=== PATIENT | male | born 1970 | race Caucasian/White ===

== ENCOUNTER 2019-09-29 10:55 | Inpatient (IN) | payer OTHER ==
[2019-09-29 13:35] VITALS: BMI 20.9
--- NOTE | 2019-09-29 14:37 | HP ---
COWS - Scale Resting Pulse: 0= [place] 80 or Below Sweatin= Chills/Flushing Restless Observation: 1= Difficult to Sit Still Pupil Size: 1= Pupils >than Normal Bone or Joint Aches: 1= Mild Discomfort Runny Nose/ Eye Tearin= Runny Nose/Eyes GI Upset > 30mins: 2= Nausea/Diarrhea Tremor Observation: 2= Slight Tremor Visible Yawning Observation: 2= >3x During Session Anxiety or Irritability: 2=Irritable/Anxious Goose Flesh Skin: 0=Smooth Skin COWS Score: 14 CIWA Score Nausea/Vomitin Muscle Tremors: 2 Anxiety: 3 Agitation: 3 Paroxysmal Sweats: No Perspiration Orientation: 0-Oriented Tacttile Disturbances: 1-Very Mild Itch/Numbness Auditory Disturbances: 0-None Visual Disturbances: 0-None Headache: 2-Mild CIWA-Ar Total Score: 13 - Admission Criteria [facility] Guidelines: Admission for Medically Managed Detox: Requires at least one of the followin. CIWA greater than 12 2. Seizures within the past 24 hours 3. Delirium tremens within the past 24 hours 4. Hallucinations within the past 24 hours 5. Acute intervention needed for co occurring medical disorder 6. Acute intervention needed for co occurring psychiatric disorder 7. Severe withdrawal that cannot be handled at a lower level of care (continued vomiting, continued diarrhea, abnormal vital signs) requiring intravenous medication and/or fluids 8. Admission ROS [facility] Chief Complaint: i need help to stop using heroin and alcohol Allergies/Adverse Reactions: Allergies Allergy/AdvReac Type Severity Reaction Status Date / Time Penicillins Allergy Verified 09/29/19 13:27 History of Present Illness: this 49 years old mal with heroin dependence and alcohol dependence,seeking help ,first visit to this facility, never been in detox before, nicotine 1 pack/day no seizure no syncope insomnia on seroquel plan for out patient program after detoxi Exam Limitations: No Limitations - Ebola screening Have you traveled outside of the country in the last 21 days: No (N) Have you had contact with anyone from an Ebola affected area: No Do you have a fever: No - Review of Systems Constitutional: Chills, Loss of Appetite, Malaise, Night Sweats, Changes in sleep, Weakness EENT: reports: Nose Congestion Respiratory: reports: Other (asthma) Cardiac: reports: No Symptoms Reported GI: reports: Diarrhea, Nausea, Abdominal cramping : reports: No Symptoms Reported Musculoskeletal: reports: Back Pain, Joint Pain, Muscle Pain Integumentary: reports: Dryness Neuro: reports: Headache, Tremors Endocrine: reports: No Symptoms Reported Hematology: reports: No Symptoms Reported Psychiatric: reports: No Sypmtoms Reported, Judgement Intact, Mood/Affect Appropiate, Orientated x3, other (insomnia) Other Systems: Reviewed and Negative Patient History - Patient Medical History Hx Anemia: No Hx Asthma: Yes (on albuterol inhaler) Hx Chronic Obstructive Pulmonary Disease (COPD): No Hx Cancer: No Hx Cardiac Disorders: No Hx Congestive Heart Failure: No Hx Hypertension: No Hx Hypercholesterolemia: No Hx Pacemaker: No HX Cerebrovascular Accident: No Hx Seizures: No Hx Dementia: No Hx Diabetes: No Hx Gastrointestinal Disorders: No Hx Liver Disease: No Hx Genitourinary Disorders: No Hx Sexually Transmitted Disorders: No Hx Renal Disease (ESRD): No Hx Thyroid Disease: No Hx Human Immunodeficiency Virus (HIV): No (last 08/09 negative) Hx Hepatitis C: No Hx Depression: No Hx Suicide Attempt: No Hx Bipolar Disorder: No Hx Schizophrenia: No Other Medical History: incomnia on seroquel 50 mgs hs,no suiidal,no homicidal - Patient Surgical History Hx Abdominal Surgery: Yes (left inguinal at [facility],right inginal 2012) - PPD History Previous Implant?: Yes Documented Results: Negative w/o proof Implanted On Prior [facility] Admission?: No PPD to be Administered?: Yes - Smoking Cessation Smoking history: Current every day smoker Have you smoked in the past 12 months: Yes Aproximately how many cigarettes per day: 20 Cigars Per Day: 0 Hx Chewing Tobacco Use: No Initiated information on smoking cessation: Yes 'Breaking Loose' booklet given: 09/29/19 - Substance & Tx. History Hx Alcohol Use: Yes Hx Substance Use: Yes Substance Use Type: Alcohol, Cocaine, Heroin Hx Substance Use Treatment: No - Substances abused Heroin Substance route: Inhalation Frequency: Daily Amount used: 5-10 bags Age of first use: 48 Date of last use: 09/29/19 Alcohol Substance route: Oral Frequency: Daily Amount used: 1Qt of Vodka and 1qt of beer Age of first use: 22 Date of last use: 11/09/19 Cocaine Substance route: Smoking Frequency: Daily Amount used: 2 grams Age of first use: 14 Date of last use: 09/28/19 Admission Physical Exam [facility] - Vital Signs Vital Signs: Vital Signs - 24 hr 09/29/19 09/29/19 13:31 13:39 Temperature 97.4 F L 97.4 F L Pulse Rate 71 71 Respiratory 16 16 Rate Blood Pressure 124/70 124/70 - Physical General Appearance: Yes: Moderate Distress, Tremorous, Irritable, Sweating, Anxious HEENTM: Yes: Normal ENT Inspection, FREDDY, Pharynx Normal Respiratory: Yes: Within Normal Limits, Lungs Clear, Normal Breath Sounds Neck: Yes: Supple, Trachea in good position Breast: Yes: Within Normal Limits Cardiology: Yes: Within Normal Limits, Regular Rhythm, Regular Rate, S1, S2 Abdominal: Yes: Within Normal Limits, Normal Bowel Sounds, Non Tender, Flat, Soft Genitourinary: Yes: Within Normal Limits Back: Yes: Muscle Spasm Musculoskeletal: Yes: Back pain, Muscle Pain Extremities: Yes: Tremors 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 NML intact, Fully Oriented, Alert, Abnormal Cranial NS Integumentary: Yes: Dry Lymphatic: Yes: Within Normal Limits - Diagnostic (1) Opioid dependence with withdrawal Current Visit: Yes Status: Acute (2) Alcohol dependence with uncomplicated withdrawal Current Visit: Yes Status: Acute (3) Nicotine dependence Current Visit: Yes Status: Acute (4) Cocaine dependence Current Visit: Yes Status: Acute Cleared for Admission [facility] - Detox or Rehab [facility] Level of Care: Medically Managed Detox Regimen/Protocol: Methadone/Librium Breathalyzer - Breathalyzer Breathalyzer: 0 Urine Drug Screen - Test Device Lot number: [id number] Expiration date: 06/20/21 - Control Is test valid?: Yes - Results Drug screen NEGATIVE: No Urine drug screen results: GISELA-Cocaine, FEN-Fentanyl, MOP-Opiates Inpatient Rehab Admission - Rehab Decision to Admit Inpatient rehab admission?: No
[2019-09-29] MEDS ORDERED: MAGNESIUM HYDROX 2400MG/30ML ORAL SUSPENSION 30 ML CUP PO PRN (14:54)
[2019-09-29] MEDS ORDERED: hydrOXYzine PAMOATE 25 MG CAPSULE (FP) PO PRN (14:54)
[2019-09-29] MEDS ORDERED: MENTHOL/PHENOL 1 EACH UD MM PRN (14:54)
[2019-09-29] MEDS ORDERED: BISMUTH SUBSALICYLATE 524 MG/30 ML UD PO PRN (14:54)
[2019-09-29] MEDS ORDERED: MAGNESIUM CITRATE 300 ML BOTTLE PO PRN (14:54)
[2019-09-29] MEDS ORDERED: IBUPROFEN 400 MG TABLET (FP) PO PRN (14:54)
[2019-09-29] MEDS ORDERED: ACETAMINOPHEN 325 MG TABLET (FP) PO PRN (14:54)
[2019-09-29] MEDS ORDERED: MELATONIN 5 MG TABLETS PO PRN (14:54)
[2019-09-29] MEDS ORDERED: MAG HYDROX/AL HYDROX/SIMETH 30 ML UNIT-DOSE CUP PO PRN (14:54)
[2019-09-29] MEDS ORDERED: METHADONE HCL 10 MG TABLET (FOR DETOX USE ONLY) PO ONE (14:54)
[2019-09-29] MEDS ORDERED: ALBUTEROL SO4 8 GM HFA INHALER IH PRN (14:58)
[2019-09-29] MEDS: chlordiazePOXIDE HCL 25 MG CAPSULE PO SCH ×2 (16:57→22:15)
[2019-09-29] MEDS: THIAMINE HCL 100 MG TABLET (FP) PO SCH (22:15)
[2019-09-30] MEDS: chlordiazePOXIDE HCL 25 MG CAPSULE PO SCH ×4 (04:52→21:59)
[2019-09-30] MEDS: ACETAMINOPHEN 325 MG TABLET (FP) PO PRN (07:18)
[2019-09-30] MEDS: METHOCARBAMOL 500 MG TABLET PO PRN (07:18)
[2019-09-30] MEDS: cloNIDine HCL 0.1 MG TABLET PO PRN (07:18)
[2019-09-30] MEDS: chlordiazePOXIDE HCL 25 MG CAPSULE PO PRN ×2 (07:22→20:03)
[2019-09-30] MEDS ORDERED: METHADONE HCL 5 MG TABLET (FOR DETOX USE ONLY) ONE (09:32)
[2019-09-30] MEDS ORDERED: METHADONE HCL 10 MG TABLET (FOR DETOX USE ONLY) ONE (09:32)
[2019-09-30] MEDS ORDERED: METHADONE (DETOX) 20 MG, METHADONE (DETOX) 5 MG PO ONE (10:00)
[2019-09-30] MEDS ORDERED: GABAPENTIN 100 MG CAPSULE (FP) PO ONE (10:00)
[2019-09-30] MEDS: PRENATAL VITAMINS W/ FOLIC ACID TABLET (FP) PO SCH (10:15)
[2019-09-30 10:20] LABS: HEMATOCRIT 41.9 % (35.4-49); HEMOGLOBIN 13.7 GM/dL (11.7-16.9); MCH 30.4 pg (25.7-33.7); MCHC 32.7 g/dl (32.0-35.9); MEAN CELL VOLUME 92.8 fl (80-96); MEAN PLT VOLUME 9.5 fl (7.5-11.1); PLATELET COUNT 189 K/MM3 (134-434); RBC 4.52 M/mm3 (4.00-5.60); RDW 14.4 % (11.9-15.9); WHITE BLOOD COUNT 6.2 K/mm3 (4.0-10.0)
[2019-09-30 10:24] LABS: ALBUMIN 3.6 g/dl (3.4-5.0); BILIRUBIN,TOTAL 0.3 mg/dL (0.2-1); BLOOD UREA NITROGEN 11.9 mg/dL (7-18); CALCIUM 8.8 mg/dL (8.5-10.1)
--- NOTE | 2019-09-30 10:28 | CONSULT ---
[facility] Psychiatric Consult - Data Date of interview: 09/30/19 Admission source: [facility] Identifying data: Patient is a 49 year old male, with children, domiciled and currently employed. This is one of multiple admissions for patient. Patient admitted to for opioid dependence. Substance Abuse History: Smoking Cessation. Smoking history: Current every day smoker. Have you smoked in the past 12 months: Yes. Aproximately how many cigarettes per day: 20. Cigars Per Day: 0. Hx Chewing Tobacco Use: No. Initiated information on smoking cessation: Yes. 'Breaking Loose' booklet given : 09/29/19. - Substance & Tx. History. Hx Alcohol Use: Yes. Hx Substance Use : Yes. Substance Use Type: Alcohol, Cocaine, Heroin. Hx Substance Use Treatment: No. - Substances abused. Heroin. Substance route: Inhalation. Frequency: Daily. Amount used: 5-10 bags. Age of first use: 48. Date of last use: 09/29/19. Alcohol. Substance route: Oral. Frequency: Daily. Amount used: 1Qt of Vodka and 1qt of beer. Age of first use: 22. Date of last use: . Cocaine. Substance route: Smoking. Frequency: Daily. Amount used : 2 grams. Age of first use: 14. Date of last use: 09/28/19 Psychiatric History: Patient denies history of psychiatric hospitalization, outpatient care, and suicide attempt. Mr. Davis reports receiving seroquel 50mg HS from his suboxone doctor. At present patient is irritable and restless due to withdrawal symptoms from opioid. Physical/Sexual Abuse/Trauma History: Not discussed. Patient irritable and restless due to withdrawals. Mental Status Exam - Mental Status Exam Alert and Oriented to: Time, Place, Person Cognitive Function: Good Patient Appearance: Well Groomed Mood: Irritable Affect: Mood Congruent Patient Behavior: Restless Speech Pattern: Clear Voice Loudness: Normal Thought Process: Goal Oriented Thought Disorder: Not Present Hallucinations: Denies Suicidal Ideation: Denies Homicidal Ideation: Denies Insight/Judgement: Poor Sleep: Poorly Appetite: Fair Muscle strength/Tone: Normal Gait/Station: Normal Psychiatric Findings - Problem List (Jackpot 1, 2,3) (1) Substance induced mood disorder Current Visit: Yes Status: Acute (2) Alcohol dependence with uncomplicated withdrawal Current Visit: Yes Status: Acute (3) Cocaine dependence Current Visit: Yes Status: Acute (4) Nicotine dependence Current Visit: Yes Status: Acute (5) Opioid dependence with withdrawal Current Visit: Yes Status: Acute (6) Substance-induced sleep disorder Current Visit: Yes Status: Acute - Initial Treatment Plan Initial Treatment Plan: Psychoeducation provided. Detoxification in progress. Will order Seroquel 50mg HS. Benefits and side effects discussed. Verbal consent given.
[2019-09-30] MEDS ORDERED: hydrOXYzine PAMOATE 50 MG CAPSULE (FP) PO PRN (10:35)
--- NOTE | 2019-09-30 10:54 | EKG ---
Test Reason : Blood Pressure : / mmHG Vent. Rate : 066 BPM Atrial Rate : 066 BPM P-R Int : 162 ms QRS Dur : 088 ms QT Int : 380 ms P-R-T Axes : 073 043 026 degrees QTc Int : 398 ms NORMAL SINUS RHYTHM NORMAL ECG NO PREVIOUS ECGS AVAILABLE Confirmed by KI WOOD, ELVIA ([id number]) on 09/30/2019 10:53:58 AM Referred By: Kwabena Cobian Confirmed By:ELVIA EMERSON MD
--- NOTE | 2019-09-30 15:02 | PN ---
[facility] CIWA - CIWA Score Nausea/Vomitin-Mild Nausea/No Vomiting Muscle Tremors: 3 Anxiety: 3 Agitation: 2 Paroxysmal Sweats: 2 Orientation: 1-Uncertain about Date Tacttile Disturbances: 0-None Auditory Disturbances: 0-None Visual Disturbances: 0-None Headache: 0-None Present CIWA-Ar Total Score: 12 BHS COWS - Scale Resting Pulse: 0= [place] 80 or Below Sweatin= Chills/Flushing Restless Observation: 0= Sits Still Pupil Size: 0= Normal to Room Light Bone or Joint Aches: 1= Mild Discomfort Runny Nose/ Eye Tearin= Nasal Congestion GI Upset > 30mins: 2= Nausea/Diarrhea (no diarrhea) Tremor Observation of Outstretched Hands: 2= Slight Tremor Visible Yawning Observation: 0= None Anxiety or Irritability: 2=Irritable/Anxious Goose Flesh Skin: 3=Piloerection COWS Score: 12 S Progress Note (SOAP) Subjective: 49 years old male admitted on 09/29/19 for alcohol and opiate withdrawal sx management treated with librium and methadone detox regimen ate breakfast tolerated food and fluid well report withdrawal sx from opiate "use 3-4 bundle" a day neurontin 100 mg po tid Objective: 09/30/19 15:04 Vital Signs Temperature 97.7 F 09/30/19 13:15 Pulse Rate 78 09/30/19 13:15 Respiratory Rate 18 09/30/19 13:15 Blood Pressure 115/75 09/30/19 13:15 O2 Sat by Pulse Oximetry (%) Laboratory Last Values WBC 6.2 K/mm3 (4.0-10.0) 09/30/19 07:50 RBC 4.52 M/mm3 (4.00-5.60) 09/30/19 07:50 Hgb 13.7 GM/dL (11.7-16.9) 09/30/19 07:50 Hct 41.9 % (35.4-49) 09/30/19 07:50 MCV 92.8 fl (80-96) 09/30/19 07:50 MCH 30.4 pg (25.7-33.7) 09/30/19 07:50 MCHC 32.7 g/dl (32.0-35.9) 09/30/19 07:50 RDW 14.4 % (11.9-15.9) 09/30/19 07:50 Plt Count 189 K/MM3 (134-434) 09/30/19 07:50 MPV 9.5 fl (7.5-11.1) 09/30/19 07:50 Sodium 143 mmol/L (136-145) 09/30/19 07:40 Potassium 4.0 mmol/L (3.5-5.1) 09/30/19 07:40 Chloride 108 mmol/L (98-107) H 09/30/19 07:40 Carbon Dioxide 32 mmol/L (21-32) 09/30/19 07:40 Anion Gap 4 MMOL/L (8-16) L 09/30/19 07:40 BUN 11.9 mg/dL (7-18) 09/30/19 07:40 Creatinine 1.0 mg/dL (0.55-1.3) 09/30/19 07:40 Est GFR (CKD-EPI)AfAm 100.55 09/30/19 07:40 Est GFR (CKD-EPI)NonAf 86.76 09/30/19 07:40 Random Glucose 76 mg/dL (74-106) 09/30/19 07:40 Calcium 8.8 mg/dL (8.5-10.1) 09/30/19 07:40 Total Bilirubin 0.3 mg/dL (0.2-1) 09/30/19 07:40 AST 9 U/L (15-37) L 09/30/19 07:40 ALT 15 U/L (13-61) 09/30/19 07:40 Alkaline Phosphatase 49 U/L (45-117) 09/30/19 07:40 Total Protein 6.0 g/dl (6.4-8.2) L 09/30/19 07:40 Albumin 3.6 g/dl (3.4-5.0) 09/30/19 07:40 RPR Titer Nonreactive (NONREACTIVE) 09/30/19 07:40 lab noted Assessment: 09/30/19 15:05 alcohol and opiate withdrawal sx management Plan: continue librium and methadone detox regimen
[2019-09-30] MEDS: GABAPENTIN 100 MG CAPSULE (FP) PO SCH ×2 (15:41→21:59)
[2019-09-30] MEDS: THIAMINE HCL 100 MG TABLET (FP) PO SCH (21:59)
[2019-09-30] MEDS ORDERED: QUEtiapine FUMARATE 50 MG TABLET PO SCH (22:00)
[2019-10-01] MEDS: METHOCARBAMOL 500 MG TABLET PO PRN (01:22)
[2019-10-01] MEDS: cloNIDine HCL 0.1 MG TABLET PO PRN (01:22)
[2019-10-01] MEDS: ACETAMINOPHEN 325 MG TABLET (FP) PO PRN (01:23)
[2019-10-01] MEDS: chlordiazePOXIDE HCL 25 MG CAPSULE PO PRN (03:22)
[2019-10-01] MEDS: chlordiazePOXIDE HCL 25 MG CAPSULE PO SCH ×2 (05:14→10:32)
[2019-10-01] MEDS: GABAPENTIN 100 MG CAPSULE (FP) PO SCH ×2 (05:14→13:26)
[2019-10-01 09:26] VITALS: BP 108/60; PULSE 66; TEMP 96
[2019-10-01] MEDS ORDERED: METHADONE HCL 10 MG TABLET (FOR DETOX USE ONLY) PO ONE (10:00)
[2019-10-01] MEDS: PRENATAL VITAMINS W/ FOLIC ACID TABLET (FP) PO SCH (10:32)
--- NOTE | 2019-10-01 11:09 | PN ---
S CIWA - CIWA Score Nausea/Vomitin-Mild Nausea/No Vomiting Muscle Tremors: 3 Anxiety: 3 Agitation: 2 Paroxysmal Sweats: 1-Minimal Palms Moist Orientation: 0-Oriented Tacttile Disturbances: 1-Very Mild Itch/Numbness Auditory Disturbances: 0-None Visual Disturbances: 0-None Headache: 0-None Present CIWA-Ar Total Score: 11 BHS COWS - Scale Resting Pulse: 0= [place] 80 or Below Sweatin= Chills/Flushing Restless Observation: 0= Sits Still Pupil Size: 0= Normal to Room Light Bone or Joint Aches: 2= Severe Diffuse Aches Runny Nose/ Eye Tearin= Nasal Congestion GI Upset > 30mins: 2= Nausea/Diarrhea Tremor Observation of Outstretched Hands: 2= Slight Tremor Visible Yawning Observation: 1= 1-2x During Session Anxiety or Irritability: 2=Irritable/Anxious Goose Flesh Skin: 0=Smooth Skin COWS Score: 11 S Progress Note (SOAP) Subjective: 49 years old male admitted on 09/29/19 for alcohol and opiate withdrawal sxx management treated with librium and methadone resting on bed feeling tired prefers to stay in bed today discuss medication assisted treatment program Objective: 10/01/19 11:09 Vital Signs Temperature 96.0 F L 10/01/19 09:25 Pulse Rate 66 10/01/19 09:25 Respiratory Rate 18 10/01/19 09:25 Blood Pressure 108/60 10/01/19 09:25 O2 Sat by Pulse Oximetry (%) Laboratory Last Values WBC 6.2 K/mm3 (4.0-10.0) 09/30/19 07:50 RBC 4.52 M/mm3 (4.00-5.60) 09/30/19 07:50 Hgb 13.7 GM/dL (11.7-16.9) 09/30/19 07:50 Hct 41.9 % (35.4-49) 09/30/19 07:50 MCV 92.8 fl (80-96) 09/30/19 07:50 MCH 30.4 pg (25.7-33.7) 09/30/19 07:50 MCHC 32.7 g/dl (32.0-35.9) 09/30/19 07:50 RDW 14.4 % (11.9-15.9) 09/30/19 07:50 Plt Count 189 K/MM3 (134-434) 09/30/19 07:50 MPV 9.5 fl (7.5-11.1) 09/30/19 07:50 Sodium 143 mmol/L (136-145) 09/30/19 07:40 Potassium 4.0 mmol/L (3.5-5.1) 09/30/19 07:40 Chloride 108 mmol/L (98-107) H 09/30/19 07:40 Carbon Dioxide 32 mmol/L (21-32) 09/30/19 07:40 Anion Gap 4 MMOL/L (8-16) L 09/30/19 07:40 BUN 11.9 mg/dL (7-18) 09/30/19 07:40 Creatinine 1.0 mg/dL (0.55-1.3) 09/30/19 07:40 Est GFR (CKD-EPI)AfAm 100.55 09/30/19 07:40 Est GFR (CKD-EPI)NonAf 86.76 09/30/19 07:40 Random Glucose 76 mg/dL (74-106) 09/30/19 07:40 Calcium 8.8 mg/dL (8.5-10.1) 09/30/19 07:40 Total Bilirubin 0.3 mg/dL (0.2-1) 09/30/19 07:40 AST 9 U/L (15-37) L 09/30/19 07:40 ALT 15 U/L (13-61) 09/30/19 07:40 Alkaline Phosphatase 49 U/L (45-117) 09/30/19 07:40 Total Protein 6.0 g/dl (6.4-8.2) L 09/30/19 07:40 Albumin 3.6 g/dl (3.4-5.0) 09/30/19 07:40 RPR Titer Nonreactive (NONREACTIVE) 09/30/19 07:40 lab noted Assessment: 10/01/19 11:10 alcohol and opiate withdrawal sx Plan: continue librium and methadone detox regimen
--- NOTE | 2019-10-01 15:53 | DS ---
[facility] Detox Discharge Summary Admission Date: 09/29/19 Discharge Date: 10/01/19 - History Present History: Alcohol Dependence, Opioid Dependence Additional Comments: 49 years old male admitted on 09/29/19 for alcohol and opiate withdrawal sx management treated with librium and methadone detox regimen patient is alert oriented x 3 speech clearly coherently ambulating steady gait patient insists to leave the detox unit without apparent reason case discuss with nurse and counselor against medical advice is appropriated patient refuses ciwa and cows refuses discharge physical examination - Physical Exam Results Vital Signs: Vital Signs Temperature 96.0 F L 10/01/19 09:25 Pulse Rate 66 10/01/19 09:25 Respiratory Rate 18 10/01/19 09:25 Blood Pressure 108/60 10/01/19 09:25 O2 Sat by Pulse Oximetry (%) Pertinent Admission Physical Exam Findings: alcohol and opiate withdrawal sx Laboratory Last Values WBC 6.2 K/mm3 (4.0-10.0) 09/30/19 07:50 RBC 4.52 M/mm3 (4.00-5.60) 09/30/19 07:50 Hgb 13.7 GM/dL (11.7-16.9) 09/30/19 07:50 Hct 41.9 % (35.4-49) 09/30/19 07:50 MCV 92.8 fl (80-96) 09/30/19 07:50 MCH 30.4 pg (25.7-33.7) 09/30/19 07:50 MCHC 32.7 g/dl (32.0-35.9) 09/30/19 07:50 RDW 14.4 % (11.9-15.9) 09/30/19 07:50 Plt Count 189 K/MM3 (134-434) 09/30/19 07:50 MPV 9.5 fl (7.5-11.1) 09/30/19 07:50 Sodium 143 mmol/L (136-145) 09/30/19 07:40 Potassium 4.0 mmol/L (3.5-5.1) 09/30/19 07:40 Chloride 108 mmol/L (98-107) H 09/30/19 07:40 Carbon Dioxide 32 mmol/L (21-32) 09/30/19 07:40 Anion Gap 4 MMOL/L (8-16) L 09/30/19 07:40 BUN 11.9 mg/dL (7-18) 09/30/19 07:40 Creatinine 1.0 mg/dL (0.55-1.3) 09/30/19 07:40 Est GFR (CKD-EPI)AfAm 100.55 09/30/19 07:40 Est GFR (CKD-EPI)NonAf 86.76 09/30/19 07:40 Random Glucose 76 mg/dL (74-106) 09/30/19 07:40 Calcium 8.8 mg/dL (8.5-10.1) 09/30/19 07:40 Total Bilirubin 0.3 mg/dL (0.2-1) 09/30/19 07:40 AST 9 U/L (15-37) L 09/30/19 07:40 ALT 15 U/L (13-61) 09/30/19 07:40 Alkaline Phosphatase 49 U/L (45-117) 09/30/19 07:40 Total Protein 6.0 g/dl (6.4-8.2) L 09/30/19 07:40 Albumin 3.6 g/dl (3.4-5.0) 09/30/19 07:40 RPR Titer Nonreactive (NONREACTIVE) 09/30/19 07:40 lab noted - Treatment Hospital Course: Detox Protocol Followed, Responded well Patient has Accepted a Rehab Referral to: medication assisted treatment progra - Medication Discharge Medications: Ambulatory Orders Albuterol Sulfate Inhaler - [Ventolin Hfa Inhaler -] 1 - 2 inh PO Q4H 09/29/19 Quetiapine Fumarate [Seroquel -] 50 mg PO BID 09/29/19 Naloxone HCl [Narcan] 4 mg NS ASDIR PRN #1 spray 10/01/19 - Diagnosis (1) Alcohol dependence with uncomplicated withdrawal Status: Acute (2) Nicotine dependence Status: Acute Qualifiers: Nicotine product type: cigarettes Substance use status: in withdrawal Qualified Code(s): F17.213 - Nicotine dependence, cigarettes, with withdrawal (3) Opioid dependence with withdrawal Status: Acute (4) Substance induced mood disorder Status: Suspected - AMA Did Patient Leave Against Medical Advice: Yes
[2019-10-02] MEDS ORDERED: chlordiazePOXIDE HCL 10 MG CAPSULE PO PRN
[2019-10-02] MEDS ORDERED: chlordiazePOXIDE HCL 10 MG CAPSULE PO SCH (05:00)
[2019-10-02] MEDS ORDERED: METHADONE (DETOX) 10 MG, METHADONE (DETOX) 5 MG PO ONE (10:00)
[2019-10-03] MEDS ORDERED: chlordiazePOXIDE HCL 10 MG CAPSULE PO SCH (05:00)
[2019-10-03] MEDS ORDERED: METHADONE HCL 10 MG TABLET (FOR DETOX USE ONLY) PO ONE (10:00)
[2019-10-04] MEDS ORDERED: chlordiazePOXIDE HCL 10 MG CAPSULE PO ONE (05:00)
[2019-10-04] MEDS ORDERED: METHADONE HCL 5 MG TABLET (FOR DETOX USE ONLY) PO ONE (06:00)
== END 2019-10-01 12:35 | disposition left against medical advice (07) | DRG 770 ==
LOC: YASAS 10:55 → Y3N 15:02
PROVIDERS: ADMIT Allergy & Immunology; ATTEND Allergy & Immunology
PROC: HZ2ZZZZ Detoxification Services for Substance Abuse Treatment (ICD-10-PCS; principal; 2019-09-29)
DX: F10.230 Alcohol dependence with withdrawal, uncomplicated (principal); F11.23 Opioid dependence with withdrawal; F14.20 Cocaine dependence, uncomplicated; F17.213 Nicotine dependence, cigarettes, with withdrawal; F19.282 Other psychoactive substance dependence with psychoactive substance-induced sleep disorder; J45.909 Unspecified asthma, uncomplicated; Z88.0 Allergy status to penicillin
CPT/HCPCS: 36415; 80053; 85027; 86593; 93005; 93010; J0735

== ENCOUNTER 2020-06-11 11:18 | Inpatient (IN) | payer OTHER ==
--- NOTE | 2020-06-11 11:56 | BHS.RME ---
Substance Use & Tx History - Substance Use History Alcohol Substance amount: 2 pints Vodka, few beers Frequency of use: Daily Substance route: Oral Date of Last Use: 06/11/20 (First use age 18 y. No seizures, no blackouts. 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 NO OD. Has Narcan at home) Heroin Substance amount: one bundle Frequency of use: Daily Substance route: Inhalation (ex: sniffing or snorting) Date of Last Use: 06/11/20 (First use age 46 y) Cocaine-Crack Substance amount: 2 grams Frequency of use: Daily Substance route: Smoking Date of Last Use: 06/11/20 (First use age 16y) Nicotine Substance amount: 1-1.5 packs Frequency of use: Daily Substance route: Smoking Date of Last Use: 06/11/20 (First use age 11y) - Last Treatment Date of last treatment: 09/29 to 10/01/19 Treatment type: Substance Use Disorder (LUIZA) Where was last treatment: Detox Physical/Psych/Mental Status - Behavior General Behavior: Increased activity (restlessness, agitation) Eye Contact: Normal - Cooperativeness Cooperativeness: Cooperative - Thinking Thought Processes: Tight Thought content: Future oriented - Physical Health Problems Is patient presently having any pain?: No Does patient presently have any injuries (include location): No Does patient currently have a fever: No COWS - Scale Resting Pulse: 0= [place] 80 or Below Sweatin=Flushed/Facial Moisture Restless Observation: 1= Difficult to Sit Still Pupil Size: 0= Normal to Room Light Bone or Joint Aches: 1= Mild Discomfort Runny Nose/ Eye Tearin= Runny Nose/Eyes GI Upset > 30mins: 0= None Tremor Observation: 0= None Yawning Observation: 0= None Anxiety or Irritability: 2=Irritable/Anxious Goose Flesh Skin: 0=Smooth Skin COWS Score: 8 CIWA Nausea/Vomitin-No Nausea/No Vomiting Muscle Tremors: None Anxiety: 2 Agitation: 1-Slight > Activity Paroxysmal Sweats: 2 Orientation: 0-Oriented Tacttile Disturbances: 0-None Auditory Disturbances: 0-None Visual Disturbances: 0-None Headache: 0-None Present CIWA-Ar Total Score: 5
--- NOTE | 2020-06-11 13:54 | HP ---
COWS - Scale Resting Pulse: 0= [place] 80 or Below Sweatin=Flushed/Facial Moisture Restless Observation: 1= Difficult to Sit Still Pupil Size: 0= Normal to Room Light Bone or Joint Aches: 1= Mild Discomfort Runny Nose/ Eye Tearin= Runny Nose/Eyes GI Upset > 30mins: 0= None Tremor Observation: 0= None Yawning Observation: 0= None Anxiety or Irritability: 2=Irritable/Anxious Goose Flesh Skin: 0=Smooth Skin COWS Score: 8 CIWA Score Nausea/Vomitin-No Nausea/No Vomiting Muscle Tremors: None Anxiety: 2 Agitation: 1-Slight > Activity Paroxysmal Sweats: 2 Orientation: 0-Oriented Tacttile Disturbances: 0-None Auditory Disturbances: 0-None Visual Disturbances: 0-None Headache: 0-None Present CIWA-Ar Total Score: 5 - Admission Criteria OASAS Guidelines: Admission for Medically Managed Detox: Requires at least one of the followin. CIWA greater than 12 2. Seizures within the past 24 hours 3. Delirium tremens within the past 24 hours 4. Hallucinations within the past 24 hours 5. Acute intervention needed for co occurring medical disorder 6. Acute intervention needed for co occurring psychiatric disorder 7. Severe withdrawal that cannot be handled at a lower level of care (continued vomiting, continued diarrhea, abnormal vital signs) requiring intravenous medication and/or fluids 8. Admitting History and Physical - Admission Chief Complaint: " I am tired of the same I want to be normal again." History of Present Illness: 49 year old male with history of alcohol dependence with withdrawal, opioid dependence with withdrawal, cocaine use disorder, nicotine dependence. He was last here 09/26/19-10/01/19 and left AMA, relapsed in 2 weeks. Substance Use & Tx History - Substance Use History Alcohol Substance amount: 2 pints Vodka, few beers Frequency of use: Daily Substance route: Oral Date of Last Use: 06/11/20 (First use age 18 y. No seizures, no blackouts. 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 NO OD. Has Narcan at home) Heroin Substance amount: one bundle Frequency of use: Daily Substance route: Inhalation (ex: sniffing or snorting) Date of Last Use: 06/11/20 (First use age 46 y) Cocaine-Crack Substance amount: 2 grams Frequency of use: Daily Substance route: Smoking Date of Last Use: 06/11/20 (First use age 16y) Nicotine Substance amount: 1-1.5 packs Frequency of use: Daily Substance route: Smoking Date of Last Use: 06/11/20 (First use age 11y) - Last Treatment Date of last treatment: 09/29 to 10/01/19 Treatment type: Substance Use Disorder (LUIZA) Where was last treatment: Detox PMH: Asthma Psurg: Hernia B/L Inguinal repaired Psych: was on Xanax for anxiety Living in a camper, homeless, no legal issues pending. Patient meets criteria for detox and is willing to sign behavioral contract for completion of detox treatment History Source: Patient Limitations to Obtaining History: No Limitations - Past Medical History Pulmonary: Yes: Asthma - Past Surgical History Past Surgical History: Yes: Hernia Repair - Smoking History Smoking history: Current every day smoker Have you smoked in the past 12 months: Yes Aproximately how many cigarettes per day: 20 - Alcohol/Substance Use Hx Alcohol Use: Yes - Social History Usual Living Arrangement: Yes: Other Do you think of yourself as: Straight/Heterosexual ADL: Independent 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 Allergies/Adverse Reactions: Allergies Allergy/AdvReac Type Severity Reaction Status Date / Time Penicillins Allergy Verified 09/29/19 13:27 Exam Limitations: No Limitations - Ebola screening Have you traveled outside of the country in the last 21 days: No Have you had contact with anyone from an Ebola affected area: No Have you been sick,other than usual withdrawal symptoms: No Do you have a fever: No - Review of Systems Constitutional: Chills, Diaphoresis, Unintentional Wgt. Loss EENT: reports: No Symptoms Reported Respiratory: reports: No Symptoms reported Cardiac: reports: No Symptoms Reported GI: reports: No Symptoms Reported : reports: No Symptoms Reported Musculoskeletal: reports: No Symptoms Reported Integumentary: reports: No Symptoms Reported Neuro: reports: No Symptoms reported Endocrine: reports: No Symptoms Reported Hematology: reports: No Symptoms Reported Psychiatric: reports: Judgement Intact, Mood/Affect Appropiate, Orientated x3, Agitated, Anxious Other Systems: Reviewed and Negative Patient History - Patient Medical History Hx Anemia: No Hx Asthma: Yes (on albuterol inhaler) Hx Chronic Obstructive Pulmonary Disease (COPD): No Hx Cancer: No Hx Cardiac Disorders: No Hx Congestive Heart Failure: No Hx Hypertension: No Hx Hypercholesterolemia: No Hx Pacemaker: No HX Cerebrovascular Accident: No Hx Seizures: No Hx Dementia: No Hx Diabetes: No Hx Gastrointestinal Disorders: No Hx Liver Disease: No Hx Genitourinary Disorders: No Hx Sexually Transmitted Disorders: No Hx Renal Disease (ESRD): No Hx Thyroid Disease: No Hx Human Immunodeficiency Virus (HIV): No (last 08/09 negative) Hx Hepatitis C: No Hx Depression: No Hx Suicide Attempt: No Hx Bipolar Disorder: No Hx Schizophrenia: No - Patient Surgical History Past Surgical History: No Hx Neurologic Surgery: No Hx Cataract Extraction: No Hx Cardiac Surgery: No Hx Lung Surgery: No Hx Breast Surgery: No Hx Breast Biopsy: No Hx Abdominal Surgery: Yes (left inguinal at [facility],right inginal 2012) Hx Appendectomy: No Hx Cholecystectomy: No Hx Genitourinary Surgery: No Hx Section: No Hx Orthopedic Surgery: No Anesthesia Reaction: No - PPD History Previous Implant?: Yes Documented Results: Negative w/proof Implanted On Prior R Admission?: No Results: negative PPD to be Administered?: Yes - Smoking Cessation Smoking history: Current every day smoker Have you smoked in the past 12 months: Yes Aproximately how many cigarettes per day: 20 Cigars Per Day: 0 Hx Chewing Tobacco Use: No Initiated information on smoking cessation: Yes 'Breaking Loose' booklet given: 06/11/20 - Substances abused Alcohol Substance route: Oral Frequency: Daily (2 pints) Amount used: 2 pints vodka Age of first use: 18 Date of last use: 06/11/20 Heroin Substance route: Inhalation Frequency: Daily Amount used: 1 bundle Age of first use: 46 Date of last use: 06/11/20 Crack Substance route: Smoking Frequency: Daily Amount used: 2 grams Age of first use: 16 Date of last use: 06/11/20 Admission Physical Exam BHS - Physical General Appearance: Yes: Thin, Tremorous, Irritable, Sweating HEENTM: Yes: EOMI, Hearing grossly Normal, Normal ENT Inspection, Normocephalic, Normal Voice, FREDDY, Pharynx Normal, Tm's normal Respiratory: Yes: Chest Non-Tender, Lungs Clear, Normal Breath Sounds, No Respiratory Distress, No Accessory Muscle Use Neck: Yes: No masses,lesions,Nodules, Supple, Trachea in good position Breast: Yes: Within Normal Limits Cardiology: Yes: Regular Rhythm, S1, S2, Tachycardia Abdominal: Yes: Normal Bowel Sounds, Non Tender, Flat, Soft Genitourinary: Yes: Within Normal Limits Back: Yes: Normal Inspection Musculoskeletal: Yes: full range of Motion, Gait Steady, Pelvis Stable Extremities: Yes: Normal Capillary Refill, Normal Inspection, Normal Range of Motion, Non-Tender Neurological: Yes: 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 NML intact, Fully Oriented, Alert, Motor Strength 5/5, Normal Mood/Affect, Normal Response Integumentary: Yes: Normal Color, Dry, Warm Lymphatic: Yes: Within Normal Limits - Diagnostic (1) Alcohol dependence with uncomplicated withdrawal Current Visit: Yes Status: Acute (2) Cocaine dependence Current Visit: Yes Status: Acute (3) Nicotine dependence Current Visit: Yes Status: Acute Qualifiers: Nicotine product type: cigarettes Substance use status: in withdrawal Qualified Code(s): F17.213 - Nicotine dependence, cigarettes, with withdrawal (4) Opioid dependence with withdrawal Current Visit: Yes Status: Acute (5) Substance-induced sleep disorder Current Visit: Yes Status: Acute (6) Substance induced mood disorder Current Visit: Yes Status: Suspected Cleared for Admission S - Detox or Rehab [facility] Level of Care: Medically Managed Detox Regimen/Protocol: Methadone/Librium Claeared for Rehab Admission: No Screened but not Admitted - Documentation of Visit Screened but not Admitted: No Breathalyzer - Breathalyzer Breathalyzer: 0.019 Urine Drug Screen - Test Device Lot number: [id number] Expiration date: 06/20/21 - Control Is test valid?: Yes - Results Drug screen NEGATIVE: No Urine drug screen results: GISELA-Cocaine, FEN-Fentanyl, MOP-Opiates Inpatient Rehab Admission - Rehab Decision to Admit Inpatient rehab admission?: No
[2020-06-11] MEDS ORDERED: cloNIDine HCL 0.1 MG TABLET PO PRN (14:03)
[2020-06-11] MEDS ORDERED: METHADONE HCL 10 MG TABLET (FOR DETOX USE ONLY) PO ONE (14:03)
[2020-06-11] MEDS ORDERED: IBUPROFEN 400 MG TABLET (FP) PO PRN (14:03)
[2020-06-11] MEDS ORDERED: MAGNESIUM HYDROX 2400MG/30ML ORAL SUSPENSION 30 ML CUP PO PRN (14:03)
[2020-06-11] MEDS ORDERED: MAGNESIUM CITRATE 300 ML BOTTLE PO PRN (14:03)
[2020-06-11] MEDS ORDERED: NICOTINE POLACRILEX 2 MG GUM BUC PRN (14:03)
[2020-06-11] MEDS ORDERED: BISMUTH SUBSALICYLATE 524 MG/30 ML UD PO PRN (14:03)
[2020-06-11] MEDS ORDERED: ACETAMINOPHEN 325 MG TABLET (FP) PO PRN ×2 (14:03)
[2020-06-11] MEDS ORDERED: ONDANSETRON *ODT* 4 MG TABLET SL ONE (14:03)
[2020-06-11] MEDS ORDERED: MAG HYDROX/AL HYDROX/SIMETH 30 ML UNIT-DOSE CUP PO PRN (14:03)
[2020-06-11] MEDS ORDERED: MENTHOL/PHENOL 1 EACH UD MM PRN (14:03)
[2020-06-11] MEDS ORDERED: ALBUTEROL SO4 HFA INHALER IH PRN (14:15)
[2020-06-11] MEDS: METHOCARBAMOL 500 MG TABLET PO PRN (16:01)
[2020-06-11] MEDS: NICOTINE 7 MG/24 HOURS TOPICAL PATCH TD SCH (16:08)
[2020-06-11] MEDS: chlordiazePOXIDE HCL 25 MG CAPSULE PO SCH ×3 (16:08→22:46)
[2020-06-11] MEDS: PRENATAL VITAMINS W/ FOLIC ACID TABLET (FP) PO SCH (16:08)
[2020-06-11 16:54] LABS: HEMATOCRIT 42.6 % (35.4-49); HEMOGLOBIN 14.2 GM/dL (11.7-16.9); MCH 30.9 pg (25.7-33.7); MCHC 33.3 g/dl (32.0-35.9); MEAN CELL VOLUME 92.9 fl (80-96); MEAN PLT VOLUME 9.7 fl (7.5-11.1); PLATELET COUNT 193 K/MM3 (134-434); RBC 4.58 M/mm3 (4.00-5.60); RDW 14.8 % (11.9-15.9); WHITE BLOOD COUNT 6.2 K/mm3 (4.0-10.0)
[2020-06-11 17:03] LABS: ALBUMIN 3.8 g/dl (3.4-5.0); BILIRUBIN,TOTAL 0.2 mg/dL (0.2-1); BLOOD UREA NITROGEN 9.6 mg/dL (7-18); CALCIUM 8.8 mg/dL (8.5-10.1); POTASSIUM 4.3 mmol/L (3.5-5.1)
[2020-06-11] MEDS: hydrOXYzine PAMOATE 25 MG CAPSULE (FP) PO SCH ×2 (17:28→22:45)
[2020-06-11] MEDS: MELATONIN 5 MG TABLETS PO SCH (22:44)
[2020-06-11] MEDS: THIAMINE HCL 100 MG TABLET (FP) PO SCH (22:48)
[2020-06-12] MEDS: chlordiazePOXIDE HCL 25 MG CAPSULE PO SCH ×4 (05:35→22:54)
[2020-06-12] MEDS: hydrOXYzine PAMOATE 25 MG CAPSULE (FP) PO SCH ×2 (05:35→10:29)
[2020-06-12] MEDS ORDERED: METHADONE HCL 10 MG TABLET (FOR DETOX USE ONLY) ONE (09:08)
[2020-06-12] MEDS ORDERED: METHADONE HCL 5 MG TABLET (FOR DETOX USE ONLY) ONE (09:09)
[2020-06-12] MEDS ORDERED: METHADONE (DETOX) 20 MG, METHADONE (DETOX) 5 MG PO ONE (10:00)
[2020-06-12] MEDS: PRENATAL VITAMINS W/ FOLIC ACID TABLET (FP) PO SCH (10:29)
[2020-06-12] MEDS: NICOTINE 7 MG/24 HOURS TOPICAL PATCH TD SCH (10:29)
--- NOTE | 2020-06-12 10:54 | PN ---
[facility] CIWA - CIWA Score Nausea/Vomitin-Mild Nausea/No Vomiting Muscle Tremors: 2 Anxiety: 3 Agitation: 4-Moderately Restless Paroxysmal Sweats: 1-Minimal Palms Moist Orientation: 0-Oriented Tacttile Disturbances: 0-None Auditory Disturbances: 0-None Visual Disturbances: 1-Very Mild Sensitivity Headache: 0-None Present CIWA-Ar Total Score: 12 S COWS - Scale Resting Pulse: 0= [place] 80 or Below Sweatin= No chills or Flushing Restless Observation: 0= Sits Still Pupil Size: 1= Pupils >than Normal Bone or Joint Aches: 1= Mild Discomfort Runny Nose/ Eye Tearin= None GI Upset > 30mins: 2= Nausea/Diarrhea Tremor Observation of Outstretched Hands: 2= Slight Tremor Visible Yawning Observation: 0= None Anxiety or Irritability: 2=Irritable/Anxious Goose Flesh Skin: 0=Smooth Skin COWS Score: 8 S Progress Note (SOAP) Subjective: 49 years old male admitted on 06/11/20 for alcohol and opiate withdrawal sx management treating with librium and methadone detox regiments feeling tired bmi 21.6 ensure 120 ml po tid with meals resting in bed limited conversation with staff irritable agitative at time increase vistaril to 50 mg po Objective: 06/12/20 10:53 Vital Signs - 24 hr 06/11/20 06/11/20 06/11/20 15:50 16:53 21:18 Temperature 97.1 F L 97.8 F 97.8 F Pulse Rate 69 74 67 Respiratory 18 18 18 Rate Blood Pressure 139/79 122/81 135/84 O2 Sat by Pulse 100 99 Oximetry (%) 06/12/20 06/12/20 06:12 09:06 Temperature 97.8 F 97.7 F Pulse Rate 53 L 62 Respiratory 16 18 Rate Blood Pressure 121/70 115/61 O2 Sat by Pulse 96 Oximetry (%) Laboratory Tests 06/11/20 06/11/20 06/11/20 15:00 15:00 15:00 WBC 6.2 RBC 4.58 Hgb 14.2 Hct 42.6 MCV 92.9 MCH 30.9 MCHC 33.3 RDW 14.8 Plt Count 193 MPV 9.7 Sodium 141 Potassium 4.3 Chloride 108 H Carbon Dioxide 27 Anion Gap 5 L BUN 9.6 Creatinine 1.0 Est GFR (CKD-EPI)AfAm 100.55 Est GFR (CKD-EPI)NonAf 86.76 Random Glucose 90 Calcium 8.8 Total Bilirubin 0.2 AST 59 H ALT 114 H Alkaline Phosphatase 64 Total Protein 7.0 Albumin 3.8 Syphilis Serology Non-reactive covid pending 06/12/20 10:53 Assessment: 06/12/20 10:53 alcohol and opiate withdrawal Plan: librium and methadone regiments
[2020-06-12] MEDS: hydrOXYzine PAMOATE 50 MG CAPSULE (FP) PO SCH ×3 (11:44→23:14)
[2020-06-12] MEDS: MELATONIN 5 MG TABLETS PO SCH (22:54)
[2020-06-12] MEDS: THIAMINE HCL 100 MG TABLET (FP) PO SCH (22:54)
[2020-06-13] MEDS: chlordiazePOXIDE HCL 25 MG CAPSULE PO PRN ×2 (03:43→14:25)
[2020-06-13] MEDS: chlordiazePOXIDE HCL 25 MG CAPSULE PO SCH ×3 (05:36→16:49)
[2020-06-13] MEDS: hydrOXYzine PAMOATE 50 MG CAPSULE (FP) PO SCH ×2 (07:07→14:29)
[2020-06-13 09:18] VITALS: TEMP 97.8
[2020-06-13] MEDS ORDERED: METHADONE HCL 10 MG TABLET (FOR DETOX USE ONLY) PO ONE (10:00)
[2020-06-13] MEDS: NICOTINE 7 MG/24 HOURS TOPICAL PATCH TD SCH (10:35)
[2020-06-13] MEDS: PRENATAL VITAMINS W/ FOLIC ACID TABLET (FP) PO SCH (10:37)
--- NOTE | 2020-06-13 13:26 | PN ---
S CIWA - CIWA Score Nausea/Vomitin-Mild Nausea/No Vomiting Muscle Tremors: 1-None Visible, but [place] Anxiety: 1-Mildly Anxious Agitation: 0-Normal Activity Paroxysmal Sweats: No Perspiration Orientation: 1-Uncertain about Date Tacttile Disturbances: 0-None Auditory Disturbances: 0-None Visual Disturbances: 0-None Headache: 0-None Present CIWA-Ar Total Score: 4 BHS COWS - Scale Resting Pulse: 0= [place] 80 or Below Sweatin= No chills or Flushing Restless Observation: 0= Sits Still Pupil Size: 0= Normal to Room Light Bone or Joint Aches: 1= Mild Discomfort Runny Nose/ Eye Tearin= Nasal Congestion GI Upset > 30mins: 0= None Tremor Observation of Outstretched Hands: 0= None Yawning Observation: 1= 1-2x During Session Anxiety or Irritability: 1=Feels Anxious/Irritable Goose Flesh Skin: 0=Smooth Skin COWS Score: 4 BHS Progress Note (SOAP) Subjective: Patient says he feels sick and wants to fully detox and never use drugs again. Objective: 06/13/20 13:26 Patient is lying calmly in bed, tired looking and mildly disoriented. He is being managed for alcohol and heroin dependence with withdrawal symptoms. He also has nicotine and cocain use disorder. 06/13/20 13:32 Assessment: 06/13/20 13:28 Patient is asthmatic and is being managed for alcohol and heroin dependence. Plan: Continue patient on librium, methadone and other supporting treatements as recommended. Patient would be completing detox on 06/16/20
--- NOTE | 2020-06-13 14:24 | PN ---
BHS Progress Note Note: Pt complaining of withdrawal sx: back pain,elbow pain, stuffy nose. He wants to sleep. Rec 1. Robaxin prn 2. Will add Lidoderm patch prn back pain
[2020-06-13] MEDS: METHOCARBAMOL 500 MG TABLET PO PRN (14:25)
[2020-06-13] MEDS ORDERED: LIDOCAINE 5% TOPICAL PATCH TP SCH (14:30)
[2020-06-13] MEDS ORDERED: NICOTINE 21 MG/24 HOURS TOPICAL PATCH TD SCH (16:02)
[2020-06-13 17:10] VITALS: BP 110/67; PULSE 79
--- NOTE | 2020-06-13 19:06 | DS ---
[facility] Detox Discharge Summary Admission Date: 06/11/20 Discharge Date: 06/13/20 - History Present History: Alcohol Dependence, Cannabis Dependence, Cocaine Dependence, Opioid Dependence Additional Comments: Patient left before the provider could examine/evaluate him. Pertinent Past History: History of Asthma,b// Inguinal hernia repair, anxiety, alcohol, fentanyl, Heroin, Crack/cocaine,and nicotine use disorder. - Physical Exam Results Vital Signs: Vital Signs Temperature 97.8 F 06/13/20 16:36 Pulse Rate 79 06/13/20 16:36 Respiratory Rate 18 06/13/20 16:36 Blood Pressure 110/67 06/13/20 16:36 O2 Sat by Pulse Oximetry (%) 97 06/13/20 12:49 Pertinent Admission Physical Exam Findings: Withdrawal symptoms. - Treatment Hospital Course: Detox Protocol Followed - Medication Discharge Medications: Ambulatory Orders Albuterol Sulfate Inhaler - [Ventolin Hfa Inhaler -] 1 - 2 inh PO Q4H 09/29/19 Quetiapine Fumarate [Seroquel -] 50 mg PO BID 09/29/19 Naloxone HCl [Narcan] 4 mg NS ASDIR PRN #1 spray 10/01/19 - Diagnosis (1) Alcohol dependence with uncomplicated withdrawal Current Visit: Yes Status: Acute (2) Cocaine dependence Current Visit: Yes Status: Chronic (3) Nicotine dependence Current Visit: Yes Status: Chronic Qualifiers: Nicotine product type: cigarettes Substance use status: in withdrawal Qualified Code(s): F17.213 - Nicotine dependence, cigarettes, with withdrawal (4) Opioid dependence with withdrawal Current Visit: Yes Status: Chronic - AMA Did Patient Leave Against Medical Advice: Yes
[2020-06-13] MEDS ORDERED: LIDOCAINE PATCH REMOVAL MC SCH ×2 (22:00)
[2020-06-14] MEDS ORDERED: chlordiazePOXIDE HCL 10 MG CAPSULE PO PRN
[2020-06-14] MEDS ORDERED: chlordiazePOXIDE HCL 10 MG CAPSULE PO SCH (05:00)
[2020-06-14] MEDS ORDERED: METHADONE (DETOX) 10 MG, METHADONE (DETOX) 5 MG PO ONE (10:00)
[2020-06-15] MEDS ORDERED: chlordiazePOXIDE HCL 10 MG CAPSULE PO SCH (05:00)
[2020-06-15] MEDS ORDERED: METHADONE HCL 10 MG TABLET (FOR DETOX USE ONLY) PO ONE (10:00)
[2020-06-16] MEDS ORDERED: chlordiazePOXIDE HCL 10 MG CAPSULE PO ONE (05:00)
[2020-06-16] MEDS ORDERED: METHADONE HCL 5 MG TABLET (FOR DETOX USE ONLY) PO ONE (06:00)
== END 2020-06-13 17:59 | disposition left against medical advice (07) | DRG 770 ==
LOC: YASAS 11:18 → Y3N 14:55
PROVIDERS: ADMIT Allergy & Immunology; ATTEND Allergy & Immunology
PROC: HZ2ZZZZ Detoxification Services for Substance Abuse Treatment (ICD-10-PCS; principal; 2020-06-11)
DX: F10.230 Alcohol dependence with withdrawal, uncomplicated (principal); F11.23 Opioid dependence with withdrawal; F14.20 Cocaine dependence, uncomplicated; F17.210 Nicotine dependence, cigarettes, uncomplicated; F19.282 Other psychoactive substance dependence with psychoactive substance-induced sleep disorder; F19.24 Other psychoactive substance dependence with psychoactive substance-induced mood disorder; F41.9 Anxiety disorder, unspecified; J45.909 Unspecified asthma, uncomplicated; Z98.890 Other specified postprocedural states; Z88.0 Allergy status to penicillin
CPT/HCPCS: 36415; 80053; 85027; 86780; J0735; U0003

== ENCOUNTER 2020-06-24 09:21 | Inpatient (IN) | payer OTHER ==
--- NOTE | 2020-06-24 09:49 | BHS.RME ---
Substance Use & Tx History - Substance Use History Alcohol Substance amount: 2 pints Vodka, few beers Frequency of use: Daily Substance route: Oral Date of Last Use: 06/23/20 (First use age 18 y. NO seizure, No Blackouts. 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 NO OD. Has Narcan at home) Other Opiates/Synthetics Substance amount: Fentanyl, one bund.e Frequency of use: Daily Substance route: Inhalation (ex: sniffing or snorting) Date of Last Use: 06/23/20 (First use age 46 y) Nicotine Substance amount: 1-1.5 packs Frequency of use: Daily Substance route: Smoking Date of Last Use: 06/24/20 (First use age 11) - Last Treatment Date of last treatment: 06/11 to Treatment type: Substance Use Disorder (LUIZA) Where was last treatment: Detox COWS - Scale Resting Pulse: 1= [place] 81-100 Sweatin= No chills or Flushing Restless Observation: 0= Sits Still Pupil Size: 0= Normal to Room Light Bone or Joint Aches: 2= Severe Diffuse Aches Runny Nose/ Eye Tearin= Runny Nose/Eyes GI Upset > 30mins: 0= None Tremor Observation: 2= Slight Tremor Visible Yawning Observation: 0= None Anxiety or Irritability: 1=Feels Anxious/Irritable Goose Flesh Skin: 0=Smooth Skin COWS Score: 8 CIWA Nausea/Vomitin-No Nausea/No Vomiting Muscle Tremors: 2 Anxiety: 1-Mildly Anxious Agitation: 0-Normal Activity Paroxysmal Sweats: No Perspiration Orientation: 2-Disoriented Date<2 days Tacttile Disturbances: 0-None Auditory Disturbances: 0-None Visual Disturbances: 0-None Headache: 0-None Present CIWA-Ar Total Score: 5
[2020-06-24 10:43] VITALS: BMI 21.7
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
[2020-06-24] MEDS ORDERED: ALBUTEROL SO4 HFA INHALER IH PRN (11:10)
[2020-06-24] MEDS ORDERED: MAGNESIUM CITRATE 300 ML BOTTLE PO PRN (11:11)
[2020-06-24] MEDS ORDERED: MENTHOL/PHENOL 1 EACH UD MM PRN (11:11)
[2020-06-24] MEDS ORDERED: ACETAMINOPHEN 325 MG TABLET (FP) PO PRN (11:11)
[2020-06-24] MEDS ORDERED: NICOTINE POLACRILEX 2 MG GUM BUC PRN (11:11)
[2020-06-24] MEDS ORDERED: METHADONE HCL 10 MG TABLET (FOR DETOX USE ONLY) PO ONE (11:11)
[2020-06-24] MEDS ORDERED: ONDANSETRON *ODT* 4 MG TABLET SL PRN (11:11)
[2020-06-24] MEDS ORDERED: cloNIDine HCL 0.1 MG TABLET PO PRN (11:11)
[2020-06-24] MEDS ORDERED: MAG HYDROX/AL HYDROX/SIMETH 30 ML UNIT-DOSE CUP PO PRN (11:11)
[2020-06-24] MEDS ORDERED: MAGNESIUM HYDROX 2400MG/30ML ORAL SUSPENSION 30 ML CUP PO PRN (11:11)
[2020-06-24] MEDS ORDERED: BISMUTH SUBSALICYLATE 262 MG/15 ML BTL PO PRN (11:39)
[2020-06-24] MEDS: METHOCARBAMOL 500 MG TABLET PO PRN (12:28)
[2020-06-24] MEDS: NICOTINE 21 MG/24 HOURS TOPICAL PATCH TD SCH (12:31)
[2020-06-24 14:28] LABS: HEMATOCRIT 42.4 % (35.4-49); HEMOGLOBIN 14.1 GM/dL (11.7-16.9); MCH 30.7 pg (25.7-33.7); MCHC 33.2 g/dl (32.0-35.9); MEAN CELL VOLUME 92.4 fl (80-96); MEAN PLT VOLUME 9.6 fl (7.5-11.1); PLATELET COUNT 221 K/MM3 (134-434); RBC 4.59 M/mm3 (4.00-5.60); RDW 14.4 % (11.9-15.9); WHITE BLOOD COUNT 6.5 K/mm3 (4.0-10.0)
[2020-06-24] MEDS: hydrOXYzine PAMOATE 25 MG CAPSULE (FP) PO SCH ×3 (14:55→22:11)
[2020-06-24 15:07] LABS: POTASSIUM 3.8 mmol/L (3.5-5.1)
[2020-06-24 15:17] LABS: ALBUMIN 3.7 g/dl (3.4-5.0); BILIRUBIN,TOTAL 0.5 mg/dL (0.2-1); BLOOD UREA NITROGEN 9.1 mg/dL (7-18); CALCIUM 8.7 mg/dL (8.5-10.1); TOT PROT 6.7 g/dl (6.4-8.2)
--- NOTE | 2020-06-24 16:53 | CONSULT ---
[facility] Psychiatric Consult - Data Date of interview: 06/24/20 Admission source: [facility] Identifying data: Readmission to [address] [place] [address] for this 49 y/o male, self- referred for detoxification treatment. LUIZA issues : heroin, cocaine, alcohol, nicotine. Patient is , father of many (patient declines to disclose number of dependents), homeless, unemployed and deprived of income. Substance Abuse History: Discussed with the patient. LUIZA profile as follows : Smoking history: Current every day smoker. Have you smoked in the past 12 months: Yes. Aproximately how many cigarettes per day: 30. Cigars Per Day: 0. Hx Chewing Tobacco Use: No. Initiated information on smoking cessation: Yes. 'Breaking Loose' booklet given: 06/24/20. - Substances abused. Alcohol. Substance route: Oral. Frequency: Daily. Amount used: vodka- 2 pts. Age of first use: 18. Date of last use: 06/23/20. Heroin. Substance route: Inhalation. Frequency: Daily. Amount used: 1 bundle. Age of first use: 46. Date of last use: 06/23/20. Other. Other (specify): fentanyl. Substance route: Inhalation. Frequency: Daily. Amount used: 1 bundle. Age of first use: 46. Date of last use: 06/24/20. Crack. Substance route: Smoking. Frequency: Daily. Amount used: 2 g. Age of first use: 16. Date of last use: 06/23/20. Alcohol. Substance amount: 2 pints Vodka, few beers. Frequency of use: Daily. Substance route: Oral. Date of Last Use: 06/23/20 (First use age 18 y. NO seizure, No Blackouts. 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 Heroin. Substance amount: one bundle. Frequency of use: Daily. Substance route: Inhalation (ex: sniffing or snorting). Date of Last Use: 06/24/20 (First use age 46 y. NO OD. Has Narcan at home). Other Opiates/Synthetics. Substance amount: Fentanyl, one bund.e. Frequency of use: Daily. Substance route: Inhalation (ex: sniffing or snorting). Date of Last Use: 06/23/20 (First use age 46 y). Nicotine. Substance amount: 1-1.5 packs. Frequency of use: Daily. Substance route: Smoking. Date of Last Use: 06/24/20 (First use age 11). Benzos: denies use. - Last Treatment. Date of last treatment: 06/11 to . Treatment type: Substance Use Disorder (LUIZA). Where was last treatment: Detox. History Source: Patient. Limitations to Obtaining History: No Limitations Medical History: Medical profile is remarkable for bronchial asthma and history of bilateral inguinal herniorraphy. Psychiatric History: Patient denies history of psychiatric hopspitalizations, OPD care or suicide attempts. Mr Davis used to see a primary care physician for refills of xanax + seroquel. Off medications for several weeks (doctor is no longer available). Physical/Sexual Abuse/Trauma History: Patient denies history of abuse. Additional Comment: Urine drug screen results: GISELA-Cocaine, FEN-Fentanyl, MOP- Opiates, BZO-Benzodiazepines. Noted. Mental Status Exam - Mental Status Exam Alert and Oriented to: Time, Place, Person Cognitive Function: Good Patient Appearance: Unkempt, Disheveled Mood: Nervous, Withdrawn Affect: Mood Congruent, Constricted Patient Behavior: Fatigued, Appropriate, Cooperative Speech Pattern: Clear, Appropriate Voice Loudness: Normal Thought Process: Intact, Goal Oriented Thought Disorder: Not Present Hallucinations: Denies Suicidal Ideation: Denies Homicidal Ideation: Denies Insight/Judgement: Poor Sleep: Poorly, Difficulty falling asleep Appetite: Good Gait/Station: Other (not observed; did not get out of bed) Psychiatric Findings - Problem List (Friendly 1, 2,3) (1) Alcohol dependence with uncomplicated withdrawal Current Visit: Yes Status: Acute (2) Opioid dependence with withdrawal Current Visit: Yes Status: Acute (3) Cocaine dependence Current Visit: Yes Status: Acute (4) Nicotine dependence Current Visit: Yes Status: Acute Qualifiers: Nicotine product type: cigarettes Substance use status: in withdrawal Amor lified Code(s): F17.213 - Nicotine dependence, cigarettes, with withdrawal (5) Substance induced mood disorder Current Visit: Yes Status: Chronic (6) Insomnia Current Visit: Yes Status: Chronic (7) Non-compliance Current Visit: Yes Status: Acute - Initial Treatment Plan Initial Treatment Plan: Psychoeducation. Sleep hygiene. Detoxification. Resumed, at patient's request : seroquel 100 mg po hs. Side effects/benefits discussed with patient. Consent granted to MD. Eduardo.
[2020-06-24] MEDS: chlordiazePOXIDE HCL 25 MG CAPSULE PO SCH ×2 (17:17→22:10)
[2020-06-24] MEDS: THIAMINE HCL 100 MG TABLET (FP) PO SCH (22:11)
[2020-06-24] MEDS: QUEtiapine FUMARATE 100 MG TABLET (FP) PO SCH (22:11)
[2020-06-24] MEDS: MELATONIN 5 MG TABLETS PO SCH (22:11)
[2020-06-25] MEDS: chlordiazePOXIDE HCL 25 MG CAPSULE PO PRN (02:48)
[2020-06-25] MEDS: IBUPROFEN 400 MG TABLET (FP) PO PRN (02:48)
[2020-06-25] MEDS: hydrOXYzine PAMOATE 25 MG CAPSULE (FP) PO SCH ×5 (05:55→22:30)
[2020-06-25] MEDS: chlordiazePOXIDE HCL 25 MG CAPSULE PO SCH ×4 (05:55→22:31)
[2020-06-25] MEDS ORDERED: METHADONE HCL 5 MG TABLET (FOR DETOX USE ONLY) ONE (08:49)
[2020-06-25] MEDS ORDERED: METHADONE HCL 10 MG TABLET (FOR DETOX USE ONLY) ONE (08:49)
[2020-06-25] MEDS ORDERED: METHADONE (DETOX) 20 MG, METHADONE (DETOX) 5 MG PO ONE (10:00)
[2020-06-25] MEDS: NICOTINE 21 MG/24 HOURS TOPICAL PATCH TD SCH (11:00)
[2020-06-25] MEDS: PRENATAL VITAMINS W/ FOLIC ACID TABLET (FP) PO SCH (11:00)
--- NOTE | 2020-06-25 15:16 | PN ---
[facility] CIWA - CIWA Score Nausea/Vomitin-Mild Nausea/No Vomiting Muscle Tremors: 2 Anxiety: 2 Agitation: 1-Slight > Activity Paroxysmal Sweats: 1-Minimal Palms Moist Orientation: 1-Uncertain about Date (day of week) Tacttile Disturbances: 1-Very Mild Itch/Numbness Auditory Disturbances: 0-None Visual Disturbances: 2-Mild Sensitivity Headache: 1-Very Mild CIWA-Ar Total Score: 12 S COWS - Scale Resting Pulse: 0= [place] 80 or Below Sweatin= Chills/Flushing Restless Observation: 0= Sits Still Pupil Size: 1= Pupils >than Normal Bone or Joint Aches: 1= Mild Discomfort Runny Nose/ Eye Tearin= None GI Upset > 30mins: 2= Nausea/Diarrhea Tremor Observation of Outstretched Hands: 2= Slight Tremor Visible Yawning Observation: 0= None Anxiety or Irritability: 2=Irritable/Anxious Goose Flesh Skin: 0=Smooth Skin COWS Score: 9 S Progress Note (SOAP) Subjective: 49 years old male admitted on 06/24/20 for alcohol and opiate withdrawal sx management treating with librium and methadone detox regiments ate breakfast and lunch in room mr zelaya prefers to stay in bed resting today limited conversation with staff increase ensure to tid Objective: 06/25/20 15:17 Vital Signs - 24 hr 06/24/20 06/24/20 06/25/20 16:47 20:57 06:31 Temperature 98.2 F 97.7 F 97.5 F L Pulse Rate 70 66 57 L Respiratory 16 16 18 Rate Blood Pressure 116/72 129/75 106/63 O2 Sat by Pulse 98 98 Oximetry (%) 06/25/20 06/25/20 09:02 12:40 Temperature 97.8 F 97.8 F Pulse Rate 68 65 Respiratory 16 16 Rate Blood Pressure 100/58 L 117/66 O2 Sat by Pulse 95 Oximetry (%) Laboratory Tests 06/24/20 06/24/20 06/24/20 10:15 10:15 10:15 WBC 6.5 RBC 4.59 Hgb 14.1 Hct 42.4 MCV 92.4 MCH 30.7 MCHC 33.2 RDW 14.4 Plt Count 221 MPV 9.6 Sodium 140 Potassium 3.8 Chloride 109 H Carbon Dioxide 25 Anion Gap 5 L BUN 9.1 Creatinine 1.0 Est GFR (CKD-EPI)AfAm 100.55 Est GFR (CKD-EPI)NonAf 86.76 Random Glucose 94 Calcium 8.7 Total Bilirubin 0.5 AST 70 H ALT 119 H Alkaline Phosphatase 61 Total Protein 6.7 Albumin 3.7 Syphilis Serology Non-reactive COVID-19 (OLIVIA) 06/24/20 14:00 WBC RBC Hgb Hct MCV MCH MCHC RDW Plt Count MPV Sodium Potassium Chloride Carbon Dioxide Anion Gap BUN Creatinine Est GFR (CKD-EPI)AfAm Est GFR (CKD-EPI)NonAf Random Glucose Calcium Total Bilirubin AST ALT Alkaline Phosphatase Total Protein Albumin Syphilis Serology COVID-19 (OLIVIA) Not detected lab noted Assessment: 06/25/20 15:18 alcohol and opiate withdrawal Plan: librium and methadone regiments
[2020-06-25] MEDS: QUEtiapine FUMARATE 100 MG TABLET (FP) PO SCH (22:30)
[2020-06-25] MEDS: THIAMINE HCL 100 MG TABLET (FP) PO SCH (22:30)
[2020-06-25] MEDS: MELATONIN 5 MG TABLETS PO SCH (22:30)
[2020-06-26] MEDS: IBUPROFEN 400 MG TABLET (FP) PO PRN ×2 (00:42→10:21)
[2020-06-26] MEDS: METHOCARBAMOL 500 MG TABLET PO PRN ×2 (00:43→10:21)
[2020-06-26] MEDS: chlordiazePOXIDE HCL 25 MG CAPSULE PO PRN ×2 (02:12→13:33)
[2020-06-26] MEDS: hydrOXYzine PAMOATE 25 MG CAPSULE (FP) PO SCH ×5 (05:59→22:12)
[2020-06-26] MEDS: chlordiazePOXIDE HCL 25 MG CAPSULE PO SCH ×4 (05:59→22:12)
[2020-06-26] MEDS ORDERED: METHADONE HCL 10 MG TABLET (FOR DETOX USE ONLY) PO ONE (10:00)
[2020-06-26] MEDS: PRENATAL VITAMINS W/ FOLIC ACID TABLET (FP) PO SCH (10:21)
[2020-06-26] MEDS: NICOTINE 21 MG/24 HOURS TOPICAL PATCH TD SCH (10:24)
--- NOTE | 2020-06-26 11:02 | PN ---
S CIWA - CIWA Score Nausea/Vomitin-Mild Nausea/No Vomiting Muscle Tremors: 2 Anxiety: 2 Agitation: 1-Slight > Activity Paroxysmal Sweats: No Perspiration Orientation: 0-Oriented Tacttile Disturbances: 1-Very Mild Itch/Numbness Auditory Disturbances: 0-None Visual Disturbances: 1-Very Mild Sensitivity Headache: 0-None Present CIWA-Ar Total Score: 8 S COWS - Scale Resting Pulse: 1= [place] 81-100 Sweatin= No chills or Flushing Restless Observation: 0= Sits Still Pupil Size: 0= Normal to Room Light Bone or Joint Aches: 1= Mild Discomfort Runny Nose/ Eye Tearin= None GI Upset > 30mins: 2= Nausea/Diarrhea Tremor Observation of Outstretched Hands: 2= Slight Tremor Visible Yawning Observation: 0= None Anxiety or Irritability: 2=Irritable/Anxious Goose Flesh Skin: 0=Smooth Skin COWS Score: 8 S Progress Note (SOAP) Subjective: 49 years old male admitted on 06/24/20 for alcohol and opiate withdrawal sx management treating with librium and methadone detox regiment encourage mr zelaya to consider medication assisted treatment program and recommend to picker and packer narcan from pharmacy upon discharge from detox Objective: 06/26/20 11:07 Vital Signs - 24 hr 06/25/20 06/25/20 06/25/20 12:40 16:34 20:47 Temperature 97.8 F 97.7 F 97.3 F L Pulse Rate 65 62 65 Respiratory 16 18 18 Rate Blood Pressure 117/66 99/67 129/77 O2 Sat by Pulse 95 97 Oximetry (%) 06/26/20 06/26/20 06:17 08:33 Temperature 97.3 F L 97.5 F L Pulse Rate 81 82 Respiratory 16 18 Rate Blood Pressure 99/74 112/72 O2 Sat by Pulse 98 Oximetry (%) Laboratory Tests 06/24/20 06/24/20 06/24/20 10:15 10:15 10:15 WBC 6.5 RBC 4.59 Hgb 14.1 Hct 42.4 MCV 92.4 MCH 30.7 MCHC 33.2 RDW 14.4 Plt Count 221 MPV 9.6 Sodium 140 Potassium 3.8 Chloride 109 H Carbon Dioxide 25 Anion Gap 5 L BUN 9.1 Creatinine 1.0 Est GFR (CKD-EPI)AfAm 100.55 Est GFR (CKD-EPI)NonAf 86.76 Random Glucose 94 Calcium 8.7 Total Bilirubin 0.5 AST 70 H ALT 119 H Alkaline Phosphatase 61 Total Protein 6.7 Albumin 3.7 Syphilis Serology Non-reactive COVID-19 (OLIVIA) 06/24/20 14:00 WBC RBC Hgb Hct MCV MCH MCHC RDW Plt Count MPV Sodium Potassium Chloride Carbon Dioxide Anion Gap BUN Creatinine Est GFR (CKD-EPI)AfAm Est GFR (CKD-EPI)NonAf Random Glucose Calcium Total Bilirubin AST ALT Alkaline Phosphatase Total Protein Albumin Syphilis Serology COVID-19 (OLIVIA) Not detected lab noted Assessment: 06/26/20 11:08 alcohol and opiate withdrawal Plan: librium and methadone regiments
[2020-06-26] MEDS: ACETAMINOPHEN 325 MG TABLET (FP) PO PRN (13:33)
[2020-06-26] MEDS ORDERED: MASKS NR ONE (21:27)
[2020-06-26] MEDS: THIAMINE HCL 100 MG TABLET (FP) PO SCH (22:12)
[2020-06-26] MEDS: QUEtiapine FUMARATE 100 MG TABLET (FP) PO SCH (22:12)
[2020-06-26] MEDS: MELATONIN 5 MG TABLETS PO SCH (22:13)
[2020-06-27] MEDS ORDERED: chlordiazePOXIDE HCL 10 MG CAPSULE PO PRN
[2020-06-27] MEDS: ACETAMINOPHEN 325 MG TABLET (FP) PO PRN (01:15)
[2020-06-27] MEDS: METHOCARBAMOL 500 MG TABLET PO PRN (01:15)
[2020-06-27] MEDS: hydrOXYzine PAMOATE 25 MG CAPSULE (FP) PO SCH ×5 (07:20→22:08)
[2020-06-27] MEDS: chlordiazePOXIDE HCL 10 MG CAPSULE PO SCH ×4 (07:20→22:07)
[2020-06-27] MEDS ORDERED: METHADONE HCL 10 MG TABLET (FOR DETOX USE ONLY) ONE (09:18)
[2020-06-27] MEDS ORDERED: METHADONE HCL 5 MG TABLET (FOR DETOX USE ONLY) ONE (09:19)
[2020-06-27] MEDS ORDERED: METHADONE (DETOX) 10 MG, METHADONE (DETOX) 5 MG PO ONE (10:00)
[2020-06-27] MEDS: NICOTINE 21 MG/24 HOURS TOPICAL PATCH TD SCH (10:16)
[2020-06-27] MEDS: PRENATAL VITAMINS W/ FOLIC ACID TABLET (FP) PO SCH (10:17)
--- NOTE | 2020-06-27 10:33 | PN ---
[facility] COWS - Scale Resting Pulse: 0= [place] 80 or Below Sweatin= Chills/Flushing Restless Observation: 1= Difficult to Sit Still Pupil Size: 0= Normal to Room Light Bone or Joint Aches: 0= None Runny Nose/ Eye Tearin= Runny Nose/Eyes GI Upset > 30mins: 0= None Tremor Observation of Outstretched Hands: 0= None Yawning Observation: 0= None Anxiety or Irritability: 0= None Goose Flesh Skin: 0=Smooth Skin COWS Score: 4 BHS Progress Note (SOAP) Subjective: Mr. Davis reports some diaphoresis, restlessness, and rhinorrhea this morning. Objective: 06/27/20 10:29 General Appearance: No Apparent Distress HEENTM: Hearing grossly Normal, Normocephalic, Normal Voice Respiratory: No Accessory Muscle Use Neck: Supple Musculoskeletal: Within Normal Limits Extremities: Normal Range of Motion Neurological: Alert, Motor Strength 5/5, Normal Response Integumentary: Dry, Warm Laboratory Tests 06/24/20 06/24/20 06/24/20 10:15 10:15 10:15 WBC 6.5 RBC 4.59 Hgb 14.1 Hct 42.4 MCV 92.4 MCH 30.7 MCHC 33.2 RDW 14.4 Plt Count 221 MPV 9.6 Sodium 140 Potassium 3.8 Chloride 109 H Carbon Dioxide 25 Anion Gap 5 L BUN 9.1 Creatinine 1.0 Est GFR (CKD-EPI)AfAm 100.55 Est GFR (CKD-EPI)NonAf 86.76 Random Glucose 94 Calcium 8.7 Total Bilirubin 0.5 AST 70 H ALT 119 H Alkaline Phosphatase 61 Total Protein 6.7 Albumin 3.7 Syphilis Serology Non-reactive COVID-19 (OLIVIA) 06/24/20 14:00 WBC RBC Hgb Hct MCV MCH MCHC RDW Plt Count MPV Sodium Potassium Chloride Carbon Dioxide Anion Gap BUN Creatinine Est GFR (CKD-EPI)AfAm Est GFR (CKD-EPI)NonAf Random Glucose Calcium Total Bilirubin AST ALT Alkaline Phosphatase Total Protein Albumin Syphilis Serology COVID-19 (OLIVIA) Not detected Last Vital Signs Temp Pulse Resp BP Pulse Ox 97.3 F L 78 18 117/73 96 06/27/20 08:30 06/27/20 08:30 06/27/20 08:30 06/27/20 08:30 06/27/20 08:30 Assessment: 06/27/20 10:31 1. Alcohol Detox -- On Librium protocol 2. Opioid Detox -- On methadone protocol 06/27/20 10:34 Plan: 1. Alcohol Detox -- On Librium protocol; scheduled to finish protocol 06/29 2. Opioid Detox -- On methadone protocol; scheduled to finish protocol 06/29
[2020-06-27] MEDS ORDERED: cloNIDine HCL 0.1 MG TABLET PO PRN (13:45)
--- NOTE | 2020-06-27 13:59 | PN ---
[facility] Progress Note Note: Pt met with counselor Pierre He hopes to go to [facility] on discharge day: June 29. Alternative: [facility] and this provider asked pt to discuss discharge with counselor tomorrow. Provider that works on Tuesday to order meds for discharge on Tuesday
[2020-06-27] MEDS: QUEtiapine FUMARATE 100 MG TABLET (FP) PO SCH (22:07)
[2020-06-27] MEDS: MELATONIN 5 MG TABLETS PO SCH (22:07)
[2020-06-27] MEDS: THIAMINE HCL 100 MG TABLET (FP) PO SCH (22:08)
[2020-06-28] MEDS ORDERED: chlordiazePOXIDE HCL 10 MG CAPSULE PO SCH (05:00)
[2020-06-28] MEDS: hydrOXYzine PAMOATE 25 MG CAPSULE (FP) PO SCH ×3 (05:52→13:38)
[2020-06-28] MEDS ORDERED: METHADONE HCL 10 MG TABLET (FOR DETOX USE ONLY) PO ONE (10:00)
[2020-06-28] MEDS: PRENATAL VITAMINS W/ FOLIC ACID TABLET (FP) PO SCH (10:08)
[2020-06-28] MEDS: NICOTINE 21 MG/24 HOURS TOPICAL PATCH TD SCH (10:09)
--- NOTE | 2020-06-28 12:24 | PN ---
S COWS - Scale Resting Pulse: 0= HI 80 or Below Sweatin= No chills or Flushing Restless Observation: 0= Sits Still Pupil Size: 0= Normal to Room Light Bone or Joint Aches: 1= Mild Discomfort Runny Nose/ Eye Tearin= None GI Upset > 30mins: 0= None Tremor Observation of Outstretched Hands: 0= None Yawning Observation: 0= None Anxiety or Irritability: 2=Irritable/Anxious Goose Flesh Skin: 0=Smooth Skin COWS Score: 3 BHS Progress Note (SOAP) Subjective: c/o mild withdrawal symptoms. Objective: 06/28/20 12:22 Vital Signs 06/28/20 06/28/20 06:39 08:30 Temperature 97.0 F L 97.0 F L Pulse Rate 66 73 Respiratory 16 18 Rate Blood Pressure 99/62 103/63 O2 Sat by Pulse 97 97 Oximetry (%) Laboratory Last Values WBC 6.5 K/mm3 (4.0-10.0) 06/24/20 10:15 RBC 4.59 M/mm3 (4.00-5.60) 06/24/20 10:15 Hgb 14.1 GM/dL (11.7-16.9) 06/24/20 10:15 Hct 42.4 % (35.4-49) 06/24/20 10:15 MCV 92.4 fl (80-96) 06/24/20 10:15 MCH 30.7 pg (25.7-33.7) 06/24/20 10:15 MCHC 33.2 g/dl (32.0-35.9) 06/24/20 10:15 RDW 14.4 % (11.9-15.9) 06/24/20 10:15 Plt Count 221 K/MM3 (134-434) 06/24/20 10:15 MPV 9.6 fl (7.5-11.1) 06/24/20 10:15 Sodium 140 mmol/L (136-145) 06/24/20 10:15 Potassium 3.8 mmol/L (3.5-5.1) 06/24/20 10:15 Chloride 109 mmol/L (98-107) H 06/24/20 10:15 Carbon Dioxide 25 mmol/L (21-32) 06/24/20 10:15 Anion Gap 5 MMOL/L (8-16) L 06/24/20 10:15 BUN 9.1 mg/dL (7-18) 06/24/20 10:15 Creatinine 1.0 mg/dL (0.55-1.3) 06/24/20 10:15 Est GFR (CKD-EPI)AfAm 100.55 06/24/20 10:15 Est GFR (CKD-EPI)NonAf 86.76 06/24/20 10:15 Random Glucose 94 mg/dL (74-106) 06/24/20 10:15 Calcium 8.7 mg/dL (8.5-10.1) 06/24/20 10:15 Total Bilirubin 0.5 mg/dL (0.2-1) 06/24/20 10:15 AST 70 U/L (15-37) H 06/24/20 10:15 ALT 119 U/L (13-61) H 06/24/20 10:15 Alkaline Phosphatase 61 U/L (45-117) 06/24/20 10:15 Total Protein 6.7 g/dl (6.4-8.2) 06/24/20 10:15 Albumin 3.7 g/dl (3.4-5.0) 06/24/20 10:15 Syphilis Serology Non-reactive (NONREACTIVE) 06/24/20 10:15 COVID-19 (OLIVIA) Not detected (Not Detected) 06/24/20 14:00 Labs noted. Assessment: 06/28/20 12:23 AOX3 and in no acute respiratory distress. Full ROM, ambulating in the unit. Mild Withdrawal symptoms. 06/28/20 12:23 Plan: continue detox. D/C in AM.
[2020-06-28 13:12] VITALS: BP 101/60; PULSE 77; TEMP 97.3
--- NOTE | 2020-06-28 15:08 | DS ---
[facility] Detox Discharge Summary Admission Date: 06/24/20 Discharge Date: 06/28/20 - History Present History: Alcohol Dependence Additional Comments: Pt is medically cleared and discharged today. Pt completed the detox protocol. Pt is encouraged to follow-up with an outpatient CD program and also to follow- up with his PMD which he verbalized understanding. Pt is alert and oriented x3 and in no acute respiratory distress, Full ROM, and ambulatory. Pertinent Past History: h/o alcohol use disorder. - Physical Exam Results Vital Signs: Vital Signs Temperature 97.3 F L 06/28/20 13:00 Pulse Rate 77 06/28/20 13:00 Respiratory Rate 18 06/28/20 13:00 Blood Pressure 101/60 06/28/20 13:00 O2 Sat by Pulse Oximetry (%) 98 06/28/20 13:00 Vital Signs 06/28/20 06/28/20 08:30 13:00 Temperature 97.0 F L 97.3 F L Pulse Rate 73 77 Respiratory 18 18 Rate Blood Pressure 103/63 101/60 O2 Sat by Pulse 97 97 Oximetry (%) Laboratory Last Values WBC 6.5 K/mm3 (4.0-10.0) 06/24/20 10:15 RBC 4.59 M/mm3 (4.00-5.60) 06/24/20 10:15 Hgb 14.1 GM/dL (11.7-16.9) 06/24/20 10:15 Hct 42.4 % (35.4-49) 06/24/20 10:15 MCV 92.4 fl (80-96) 06/24/20 10:15 MCH 30.7 pg (25.7-33.7) 06/24/20 10:15 MCHC 33.2 g/dl (32.0-35.9) 06/24/20 10:15 RDW 14.4 % (11.9-15.9) 06/24/20 10:15 Plt Count 221 K/MM3 (134-434) 06/24/20 10:15 MPV 9.6 fl (7.5-11.1) 06/24/20 10:15 Sodium 140 mmol/L (136-145) 06/24/20 10:15 Potassium 3.8 mmol/L (3.5-5.1) 08/04/20 10:15 Chloride 109 mmol/L (98-107) H 06/24/20 10:15 Carbon Dioxide 25 mmol/L (21-32) 06/24/20 10:15 Anion Gap 5 MMOL/L (8-16) L 06/24/20 10:15 BUN 9.1 mg/dL (7-18) 06/24/20 10:15 Creatinine 1.0 mg/dL (0.55-1.3) 06/24/20 10:15 Est GFR (CKD-EPI)AfAm 100.55 06/24/20 10:15 Est GFR (CKD-EPI)NonAf 86.76 06/24/20 10:15 Random Glucose 94 mg/dL (74-106) 06/24/20 10:15 Calcium 8.7 mg/dL (8.5-10.1) 06/24/20 10:15 Total Bilirubin 0.5 mg/dL (0.2-1) 06/24/20 10:15 AST 70 U/L (15-37) H 06/24/20 10:15 ALT 119 U/L (13-61) H 06/24/20 10:15 Alkaline Phosphatase 61 U/L (45-117) 06/24/20 10:15 Total Protein 6.7 g/dl (6.4-8.2) 06/24/20 10:15 Albumin 3.7 g/dl (3.4-5.0) 06/24/20 10:15 Syphilis Serology Non-reactive (NONREACTIVE) 06/24/20 10:15 COVID-19 (OLIVIA) Not detected (Not Detected) 06/24/20 14:00 Labs noted. Pertinent Admission Physical Exam Findings: withdrawal symptoms. - Treatment Hospital Course: Detox Protocol Followed, Detoxed Safely, Responded well, Discharged Condition Good - Medication Discharge Medications: Ambulatory Orders Quetiapine Fumarate [Seroquel -] 100 mg PO HS 09/29/19 Naloxone HCl [Narcan] 4 mg NS ASDIR PRN #1 spray 06/26/20 Albuterol Sulfate Inhaler - [Ventolin Hfa Inhaler -] 1 - 2 inh PO Q4H 30 Days inhaler 06/28/20 - AMA Did Patient Leave Against Medical Advice: No
[2020-06-29] MEDS ORDERED: chlordiazePOXIDE HCL 10 MG CAPSULE PO ONE (05:00)
[2020-06-29] MEDS ORDERED: METHADONE HCL 5 MG TABLET (FOR DETOX USE ONLY) PO ONE (06:00)
== END 2020-06-28 02:18 | disposition home or self-care (01) | DRG 773 ==
LOC: YASAS 09:21 → Y3N 11:23
PROVIDERS: ADMIT Allergy & Immunology; ATTEND Allergy & Immunology
PROC: HZ2ZZZZ Detoxification Services for Substance Abuse Treatment (ICD-10-PCS; principal; 2020-06-24)
DX: F11.23 Opioid dependence with withdrawal (principal); F10.230 Alcohol dependence with withdrawal, uncomplicated; F14.20 Cocaine dependence, uncomplicated; F17.213 Nicotine dependence, cigarettes, with withdrawal; F19.24 Other psychoactive substance dependence with psychoactive substance-induced mood disorder; G47.00 Insomnia, unspecified; J45.909 Unspecified asthma, uncomplicated; Z91.14 Patient's other noncompliance with medication regimen; Z88.0 Allergy status to penicillin; Z59.0 Homelessness
CPT/HCPCS: 36415; 80053; 85027; 86780; J0735; U0003